=== PATIENT | female | born 1985 | race Caucasian/White ===

== ENCOUNTER 2016-07-03 20:21 | Emergency (ER) | payer OTHER ==
[~2016-07-03] VITALS: Ht 177.8 cm; Wt 109.1 kg
[~2016-07-03 20:21] MED LIST: CITA40TA13 PO; DICY20TA33 PO; POLY17PO6 PO
[2016-07-03 20:30] VITALS: BP 113/65; PULSE 66; RESP 15; O2SAT 100
--- NOTE | 2016-07-03 21:27 | ED.REPORT ---
HPI-Abd Pain F Under 41 Date of Service Jul 03, 2016 ED Provider: Dr. Daniel Good MD A 31 year old female with a history of Crohn's disease, recurrent UTI's and kidney stones presents to the ED with RLQ abdominal pain that began 2 hours ago. Associated symptoms include diarrhea, nausea and vomiting that are similar to her flares of Crohn's. Patient is currently expressing concern about appendicitis. Her current pain is much sharper than previous episodes of abdominal pain. She denies any chance of . Nursing Notes Stated Complaint: RIGHT ABDOMINAL PAIN,NAUSEA Chief Complaint: Female Abdominal Pain Nursing Notes Reviewed: Yes Allergies: Coded Allergies: acyclovir (Verified Allergy, Intermediate, hives, vomiting, 02/18/15) ceftriaxone sodium (Verified Allergy, Unknown, 02/18/15) Scheduled Citalopram (Citalopram) 40 Mg Tablet 60 MG PO DAILY Polyethylene Glycol 3350 (Miralax) 17 Gm Powd.pack 17 GM PO DAILY Scheduled PRN Dicyclomine (Bentyl) 20 Mg Tablet 20 MG PO QID PRN PRN For Pain General Time Seen by MD: 21:26 Chief Complaint Abdominal pain Hx Obtained From: Patient Arrived By: Walk-in Sudden in Onset?: No Onset Occurred: 1 - 4 hours ago (2 hrs) Symptom Duration: Since onset Progression since Onset: Gradually worsening Location: : RLQ Quality: Painful, Sharp Radiation: : Does not radiate Severity: Current: Moderate Severity: Maximum: Moderate Associated with: Reports: Diarrhea, Nausea, Vomiting Pertinent Negative: Pt denies other symptoms Status: Negative - ED urine HCG Recent Healthcare: No recent doctor visit, No recent hospitalization Past Medical History Past Medical History Notes: PCP: Dr. Murphy at [facility] Past Medical History 1. Anxiety. 2. History of UTIs. Hx of seizures Hx of meningitis Hx of ileus Kidney stones Past Surgical History ankle reconstruction Reports: , Cholecystectomy Family History unknown on father's store Smoking History Light Tobacco Smoker Social History Alcohol Use: 1-3 per week Drug Use: THC Other Social History: Good social support Ambulatory Status Independent Review of Systems GI: Reports: Abdominal pain (RLQ ), Diarrhea, Nausea, Vomiting Female: Denies: Complete sys rev & neg: except as marked. Physical Exam Initial Vital Signs Vital Signs (First) Date Time Temp Pulse Resp B/P Pulse Ox O2 Delivery O2 Flow Rate FiO2 07/03/16 20:30 36.4 66 15 113/65 100 Room Air Initial VS: Reviewed Head / Eyes: Atraumatic, Normocephalic, PERRL Neck: Supple, Non-tender, Full range of motion Skin: Warm, Dry, No cyanosis Neurologic: Alert, Oriented, Nonfocal Psychiatric: Mood/affect normal, Behavior normal, Normal thought content General/Constitutional: Awake, Alert, No acute distress Respiratory / Chest: Atraumatic, No respiratory distress Cardiovascular: Heart rate NL, Regular rhythm, Heart sounds NL Abdomen: Atraumatic, Soft Tenderness/Guarding/Rebound: Positive: Tender RLQ... (Mild) Back: Atraumatic, Inspection NL Interpretation & Diagnostics Lab Results Interpretation Result Diagram: 07/03/16211407/03/162114 Test 07/03/16 21:15 07/03/16 21:31 White Blood Count 6.4th/mm3 (3.8-10.1) Red Blood Count 4.48mil/mm3 (3.90-5.20) Hemoglobin 12.0g/dL (12.0-15.6) Hematocrit 36.8% (35.0-46.0) Mean Corpuscular Volume 82.1fL (81-100) Mean Corpuscular Hemoglobin 26.8pg (27.0-35.0) Mean Corpuscular Hemoglobin Concent 32.6% (32.0-37.0) Red Cell Distribution Width 15.0% (12.3-15.4) Platelet Count 219bil/L (150-400) Neutrophils (%) (Auto) 52.3% (40-74) Lymphocytes (%) (Auto) 38.5% (14-46) Monocytes (%) (Auto) 7.7% (4-12) Eosinophils (%) (Auto) 1.3% (0-5) Basophils (%) (Auto) 0.2% (0-3) Sodium Level 138mEq/L (134-144) Potassium Level 4.0mEq/L (3.5-5.2) Chloride Level 102mEq/L (97-108) Carbon Dioxide Level 20mmol/L (18-29) Blood Urea Nitrogen 14mg/dL (6-20) Creatinine 0.67mg/dL (0.57-1.00) Estimat Glomerular Filtration Rate 148mL/min (>59) Glucose Level 101mg/dL (60-99) Calcium Level 9.2mg/dL (8.5-10.1) Magnesium Level 2.0mg/dL (1.6-2.6) Total Bilirubin 0.2mg/dL (0.0-1.2) Aspartate Amino Transf (AST/SGOT) 19U/L (0-50) Alanine Aminotransferase (ALT/SGPT) 12U/L (0-32) Alkaline Phosphatase 82U/L (25-150) Total Protein 7.1g/dL (6.4-8.4) Albumin 4.3g/dL (3.4-5.0) Lipase 17U/L (13-60) HCG Beta Subunit 0.500mIU/mL Hold Avery Top Tube Received (Received) Urine Color Yellow (YELLOW) Urine Appearance Cloudy (CLEAR,HAZY) Urine pH 6.0 (5.0-8.0) Urine Specific [place] 1.025 (1.003-1.035) Urine Protein Negativemg/dL (NEG,TRACE) Urine Glucose (UA) Negativemg/dL (NEGATIVE) Urine Ketones Negativemg/dL (NEGATIVE) Urine Occult Blood Small (NEGATIVE) Urine Nitrite Negative (NEGATIVE) Urine Bilirubin Negative (NEGATIVE) Urine Urobilinogen Normalmg/dL (NORMAL) Urine Leukocyte Esterase Negative (NEGATIVE) Urine RBC 0-2/hpf (0-2) Urine WBC 0-5/hpf (0-5) Urine Epithelial Cells Many/hpf (NONE-MOD) Urine Crystals None seen (NONE SEEN) Urine Bacteria Many/hpf (NONE-FEW) Urine Hyaline Casts None/lpf (NONE) Urine Granular Casts None seen (NONE SEEN) Urine Waxy Casts None seen (NONE SEEN) Urine Red Blood Cell Casts None seen (NONE SEEN) Urine White Blood Cell Casts None seen (NONE SEEN) Urine Mucus Present (None Seen) Urine Trichomonas None seen (NONE SEEN) Urine Yeast None (NONE SEEN) Urinalysis Comment None Urine Culture Reflexed Indicated Point of Care Testing: Preg test neg - urine CT Abd / Pelvis Interpretation IMPRESSION: No acute abnormalites identified. No acute appendicitis. Evidence of abnormal enhancement in the liver Study type: Abdominal CT IV contrast, Abdom CT oral contrast Interpretation / Wet Read by: Interpret - Radiologist ([facility] ) Re-Eval/Medical Decision Re-Evaluation/Progress #1: Time of Eval: 23:05 Patient Status: Condition worsened Re-Evaluation/Progress Note: Pain is still present and abdomen is tender with guarding. Patient is informed of the plan to obtain a CT scan to rule out appendicitis. Re-Evaluation/Progress #2: Time of Eval: 01:24 Patient Status: Condition improved Re-Evaluation/Progress Note: Patient is informed of her CT results and lab results. Counseled Regarding: Diagnosis, Lab results, Need for follow-up, When/why to return to ED Discharge & Departure Primary Impression: Right lower quadrant abdominal pain Disposition: Home Discharge Condition All VS Reviewed: Yes Condition: Improved Patient Instructions: Acute Abdominal Pain (ED) Additional Instructions: Thank you for trusting us with your care this evening. Your CT results do not indicate any acute findings, however, your liver did display some abnormalities. A clear cause of your symptoms was not identified. The CT scan shows some abnormal enhancement and your liver. It is recommended that you have a follow-up CT scan that is a specific liver protocol and your primary care physician can set this up for you. Take 1-2 [place] every 6 hours as needed for pain. This medication is a narcotic and may cause drowsiness. Please do not drink, drive or use acetaminophen while on this medication. Please return to the ED if you begin to experience any new or worsening symptoms including any fevers, vomiting or severe pain. Referrals: Yessenia Murphy MD (PCP) Ruth Attestation Portions of this note were transcribed by Misty Campoverde. I, Dr. Good personally performed the history, physical exam and medical decision-making; I reviewed and confirmed the accuracy of the information in the transcribed note. Signed by: Ruth Pedro, 07/04/16 0200. copies to: Yessenia Mruphy MD, Todd P DO Jul 03, 2016 21:27 MISTY CAMPOVERDE Jul 03, 2016 22:16
[2016-07-03 21:31] LABS: BASOPHILS % (AUTO) 0.2 % (0-3); EOSINOPHILS % (AUTO) 1.3 % (0-5); MONOCYTES % (AUTO) 7.7 % (4-12); Mean Corpuscular Hemoglobin 26.8 pg (27.0-35.0); Mean Corpuscular Volume 82.1 fL (81-100); NEUTROPHILS % (AUTO) 52.3 % (40-74); Platelet Count 219 bil/L (150-400)
[2016-07-03 22:04] LABS: APPEARANCE,URINE CLOUDY (CLEAR,HAZY); COLOR,URINE YELLOW (YELLOW); OCCULT BLOOD,URINE SMALL (NEGATIVE); UROBILINOGEN,URINE NORMAL (NORMAL)
[2016-07-03] MEDS: HYDROmorphone 0.5 mg/0.5 mL iSecure Syringe IVPUSH PRN ×3 (22:16→23:18)
[2016-07-03] MEDS: Ondansetron 2 mg/mL 2 mL Inj IVPUSH PRN ×2 (22:16→23:18)
[2016-07-04] MEDS: HYDROmorphone 0.5 mg/0.5 mL iSecure Syringe IVPUSH PRN (00:21)
[2016-07-04] MEDS ORDERED: _HYDROcodone/APAP 5-325 mg Tablet PO PRN (01:15)
[2016-07-04 01:53] VITALS: BP 102/54; PULSE 80; RESP 24; O2SAT 100
--- NOTE | 2016-07-04 09:37 | DRSVH ---
PROCEDURE: CT ABDOMEN AND PELVIS WITH CONTRAST ([id number]) INDICATIONS: right lower and mid abdominal pain TECHNIQUE: After the administration of intravenous contrast, 5 mm thick sections acquired from the diaphragm to the symphysis. 5 mm coronal and sagittal reformats were acquired. For radiation dose reduction, the following was used: automated exposure control, adjustment of mA and/or kV according to patient siz e. COMPARISON: [facility], CT, CT ABD PELVIS W CON, 02/18/2015, 21:46. [facility], CT, ABD/PELVIS W/CON (PNL), 05/21/2014, 18:08. [facility], CT, ABD/PELVIS W/CON (PNL ), 12/13/2013, 3:29. FINDINGS: Image quality: Excellent. ABDOMEN: Lung bases: Lung bases are clear. Heart size is normal. Solid organs: Liver and spleen are normal in size. A 3.4 x 4.6 x 3.5 cm hypoattenuating lesion is no darling in segment IVb of the liver which is not identified on prior CT scans. Gallbladder is surgically absent. Biliary system is slightly dilated likely related to prior cholecystectomy. Pancreas enhanc es normally. No adrenal nodules. Kidneys demonstrate normal size and enhancement, without hydroneph rosis. Peritoneum and bowel: Bowel loops demonstrate normal wall thickness and caliber. No free fluid or a ir. Nodes and vessels: No retroperitoneal or mesenteric adenopathy by size criteria. Aorta and inferior vena cava are normal in size. The appendix is normal. Miscellaneous: No ventral hernias. PELVIS: Genitourinary: Bladder wall thickness is normal. Miscellaneous: No inguinal hernias or adenopathy. Bones: No suspicious bony lesions. No vertebral body compression fractures. IMPRESSION: 1. No acute disease process identified. 2. No evidence of appendicitis. 3. No free fluid or free air. 4. Status post cholecystectomy. 5. 3.4 x 4.6 x 3.5 cm hypoattenuating hepatic mass highly suspicious for neoplastic process. Recommen d dedicated hepatic MRI scan for definitive characterization of the finding. Final interpretation is concordant with preliminary interpretation. Dictated by: Alisia Steward MD, PhD on 07/04/2016 at 9:11 Approved by: Alisia Steward MD, PhD on 07/04/2016 at 9:36
== END 2016-07-04 01:59 | disposition home or self-care (01) ==
LOC: SED 20:21
DX: R10.31 Right lower quadrant pain (principal); R19.7 Diarrhea, unspecified; R11.2 Nausea with vomiting, unspecified; F17.200 Nicotine dependence, unspecified, uncomplicated; Z87.442 Personal history of urinary calculi; Z87.440 Personal history of urinary (tract) infections; Z88.8 Allergy status to other drugs, medicaments and biological substances
CPT/HCPCS: 36415; 74177; 80053; 81000; 81025; 83690; 83735; 84702; 85025; 87086; 87088; 96374; 96375; 96376; 99285; J1170; J2405; Q9967